=== PATIENT | female | born 1930 | race Caucasian/White ===

== ENCOUNTER 2017-06-28 07:47 | Emergency (ER) | payer MEDICARE ==
[~2017-06-28] VITALS: Ht 152.4 cm; Wt 72.7 kg
[2017-06-28 07:53] VITALS: TEMP 98.1
[2017-06-28] MEDS ORDERED: REQUIP 1MG T1 MG/TAB PO (08:21)
[2017-06-28] MEDS ORDERED: PROTONIX 40MG T40 MG PO (08:22)
[2017-06-28] MEDS ORDERED: PLAVIX 75MG TAB75 MG PO (08:22)
[2017-06-28] MEDS ORDERED: ISORDIL 10MG10 MG PO (08:22)
[2017-06-28] MEDS ORDERED: LIPITOR 40MG TA40 MG PO (08:22)
[2017-06-28] MEDS ORDERED: LOPRESSOR100 MG PO ×2 (08:23)
[2017-06-28] MEDS ORDERED: BENICAR 20MG TA20 MG PO (08:24)
[2017-06-28] MEDS ORDERED: NORVASC 5MG5 MG/TAB PO (08:24)
[2017-06-28] MEDS ORDERED: ASPIRIN 81M81 MG/TA2 PO (08:24)
[2017-06-28] MEDS ORDERED: PULMICORT90 MCG/Act IH (08:24)
[2017-06-28] MEDS ORDERED: VENTOLIN0.09 MG IH (08:25)
[2017-06-28] MEDS ORDERED: ATROVENT INHALE14 GM IH (08:25)
[2017-06-28 08:54] LABS: BASO # 0.1 (0.0-0.2); BASO % 0.7 % (0.0-2.0); EOS # 0.2 (0.0-0.7); EOS % 1.7 % (0-4.0); GRAN # 7.9 (1.4-6.5); GRAN % 69.2 % (42.2-75.2); HEMATOCRIT 37.6 % (37.0-47.0); HEMOGLOBIN 12.2 g/dl (12.5-16.0); LYMPH # 2.2 (1.2-3.4); LYMPH % 18.9 % (20.0-51.0); MEAN CELL VOLUME 92 fl (80.0-100.0); MEAN CORPUSCULAR HEMOGLOBIN 30 pg (27.0-31.0); MEAN CORPUSCULAR HGB CONC 32 g/dl (33.0-37.0); MEAN PLATELET VOLUME 9.4 fl (7.4-10.4); MONO # 1.1 (0.1-0.6); MONO % 9.3 % (1.7-9.3); PLATELET COUNT 298 K/mm3 (130-400); RED BLOOD COUNT 4.09 M/mm3 (4.10-5.30); REDCELL DISTRIBUTION WIDTH-CV 12.9 % (11.5-14.5)
[2017-06-28 08:56] LABS: COLLECTION METHOD CATHETER
[2017-06-28 09:05] LABS: MUCOUS Present /lpf; PH 5 (5-8); SQUAMOUS EPITHELIAL None Seen /hpf; URINE APPEARANCE Clear; URINE BACTERIA None Seen /hpf; URINE BILIRUBIN Negative (NEGATIVE); URINE BLOOD 1+ (NEGATIVE); URINE COLOR Yellow; URINE GLUCOSE Negative (NEGATIVE); URINE KETONE Negative (NEGATIVE); URINE LEUKOCYTE ESTERASE Negative (NEGATIVE); URINE NITRATE Negative (NEGATIVE); URINE PROTEIN(semi-quant) Negative (NEGATIVE); URINE RBC 0-2 /hpf; URINE UROBILINOGEN Negative (NEGATIVE)
[2017-06-28 09:06] LABS: ALBUMIN 3.9 gm/dL (3.5-5.0); BILIRUBIN,TOTAL 0.8 mg/dL (0.0-1.0); C-REACTIVE PROTEIN 6.6 mg/dL (0.0-0.9); CALCIUM 9.1 mg/dL (8.4-10.2); CREATININE, serum 1.03 mg/dL (0.52-1.25); TOTAL PROTEIN 6.7 gm/dL (6.4-8.2)
[2017-06-28 09:17] LABS: ERYTHROCYTE SEDIMENTATION RATE 32 mm/hr (0-30)
[2017-06-28] MEDS ORDERED: ATIVAN 0.50.5 MG/TAB PO (10:02)
[2017-06-28 10:05] VITALS: BP 132/60; PULSE 80
== END 2017-06-28 10:15 | disposition home or self-care (01) ==
LOC: COL.ER 07:47
PROVIDERS: Emergency Medicine
DX: M54.5 Low back pain (principal); I10 Essential (primary) hypertension; I25.10 Atherosclerotic heart disease of native coronary artery without angina pectoris; J45.909 Unspecified asthma, uncomplicated; Z87.19 Personal history of other diseases of the digestive system; Z87.39 Personal history of other diseases of the musculoskeletal system and connective tissue; Z95.1 Presence of aortocoronary bypass graft; Z90.710 Acquired absence of both cervix and uterus; Z79.02 Long term (current) use of antithrombotics/antiplatelets; Z79.82 Long term (current) use of aspirin; W19.XXXA Unspecified fall, initial encounter
CPT/HCPCS: J1885; J2060; J2405; J7030; Q9967